=== PATIENT | male | born 1980 | race Caucasian/White ===

== ENCOUNTER 2019-05-11 18:38 | Emergency (ER) | payer OTHER ==
[~2019-05-11] VITALS: Ht 188 cm; Wt 98.0 kg
[~2019-05-11 18:38] MED LIST: ASPIRIN325; HYDROCODONE-AP1 EAC6 PO; IBUPROFEN 800800 M1; IBUPROFEN 800800 M1 PO; MULTI-SYMPTOM1 EAC3 PO; NAPROSYN500 MG PO; TAMIFLU PO
[2019-05-11] MEDS ORDERED: ZESTRIL40 MG PO (18:59)
[2019-05-11] MEDS ORDERED: MELOXICAM7.5 MG PO (18:59)
[2019-05-11] MEDS ORDERED: NORCO 5-325 TA1 EAC1 PO (20:02)
[2019-05-11 20:30] VITALS: BP 135/75
== END 2019-05-11 20:31 | disposition home or self-care (01) ==
LOC: M.ERS 18:38
DX: S86.111A Strain of other muscle(s) and tendon(s) of posterior muscle group at lower leg level, right leg, initial encounter (principal); I10 Essential (primary) hypertension; G89.29 Other chronic pain; X50.1XXA Overexertion from prolonged static or awkward postures, initial encounter; Y93.89 Activity, other specified; Y92.89 Other specified places as the place of occurrence of the external cause; Y99.8 Other external cause status